=== PATIENT | male | born 1960 | race Caucasian/White ===

== ENCOUNTER → 2020-01-21 08:40 | Outpatient (BNVA) | payer MEDICARE, SELFPAY | PROVIDERS: Family Provider Nurse Practitioner; PCP Nurse Practitioner; Visit Provider Nurse Practitioner | DX: E11.65 Type 2 diabetes mellitus with hyperglycemia (principal); I10 Essential (primary) hypertension; B02.30 Zoster ocular disease, unspecified | CPT/HCPCS: 80053; 80061; 81003; 82044; 83036 ==

== ENCOUNTER → 2020-05-01 13:54 | Outpatient (BNVA) | payer MEDICARE, SELFPAY | PROVIDERS: Family Provider Nurse Practitioner; PCP Nurse Practitioner; Visit Provider Nurse Practitioner Family | DX: M25.532 Pain in left wrist (principal); X58.XXXA Exposure to other specified factors, initial encounter; S69.92XA Unspecified injury of left wrist, hand and finger(s), initial encounter | CPT/HCPCS: 73110 ==

== ENCOUNTER → 2020-07-08 10:03 | Outpatient (BNVA) | payer MEDICARE, SELFPAY | PROVIDERS: Family Provider Nurse Practitioner; PCP Nurse Practitioner; Visit Provider Nurse Practitioner | DX: I10 Essential (primary) hypertension (principal); E11.65 Type 2 diabetes mellitus with hyperglycemia | CPT/HCPCS: 72040; 72072; 80053; 80061; 83036; 85025 ==

== ENCOUNTER 2020-09-29 09:14 | Outpatient (CLI) | payer MEDICARE, SELFPAY ==
--- NOTE | 2020-09-29 09:36 | XR_ITS ---
WS: [id number] LEFT SHOULDER: 3 VIEW(S) TECHNIQUE: Internal and external rotation with Y view. HISTORY: PAIN IN LEFT SHOULDER COMPARISON: None available. No fracture or dislocation or soft tissue abnormality. Mild narrowing of the AC joint. Visualized LEFT upper lung is normal. XR/XR shoulder LT min 2V* [id number] IMPRESSION: Mild AC joint arthritis.
--- NOTE | 2020-09-29 09:36 | MR_ITS ---
WS: [id number] MRI CERVICAL SPINE HISTORY: CERVICALGIA COMPARISON: None available. Normal posterior cervical alignment. No fractures or marrow edema. Signal within the cervical cord is normal. Visualized posterior fossa is unremarkable. Craniocervical junction, C1 and C2 relationship, odontoid process and soft tissues are normal. C2-C3: Normal. C3-C4: Very small osteophytes without significant stenosis. C4-C5: Normal. C5-C6: Normal. C6-C7: Very shallow disc protrusion centrally. No significant stenosis. C7-T1: Normal. Paraspinal soft tissue are normal. MR/MR cervical spin wo con* [id number] IMPRESSION: 1. No significant central or foraminal stenosis or disc protrusions. 2. Normal signal within the cord.
--- NOTE | 2020-09-29 09:36 | XR_ITS ---
WS: [id number] LATERAL CERVICAL SPINE: 3 view. Lateral radiographs are performed in upright neutral, flexion and extension to the patient's toleranc e. HISTORY: CERVICALGIA COMPARISON: 07/08/2020 Posterior alignment is normal. With flexion there is 2 mm anterolisthesis of C3. Normal alignment dur ing extension and neutral. No fractures. No prevertebral soft tissue swelling. XR/XR cervical spine fl/ex [id number] IMPRESSION: 2 mm anterolisthesis of C3 during flexion only.
== END 2020-09-29 09:15 | disposition home or self-care (01) ==
PROVIDERS: PCP Nurse Practitioner; Visit Provider Anesthesiology Pain Medicine
DX: M54.2 Cervicalgia (principal); M25.512 Pain in left shoulder; M13.812 Other specified arthritis, left shoulder
CPT/HCPCS: 72040; 72141; 73030

== ENCOUNTER → 2020-12-10 08:19 | Outpatient (BNVA) | payer MEDICARE, SELFPAY | PROVIDERS: PCP Nurse Practitioner; Visit Provider Nurse Practitioner | DX: E11.65 Type 2 diabetes mellitus with hyperglycemia (principal); I10 Essential (primary) hypertension | CPT/HCPCS: 80053; 80061; 83036; 85025 ==

== ENCOUNTER → 2020-12-16 12:02 | Outpatient (BNVA) | payer MEDICARE, SELFPAY | PROVIDERS: PCP Nurse Practitioner; Visit Provider Nurse Practitioner | DX: E11.65 Type 2 diabetes mellitus with hyperglycemia (principal); B02.30 Zoster ocular disease, unspecified; I10 Essential (primary) hypertension; M47.22 Other spondylosis with radiculopathy, cervical region | CPT/HCPCS: 81000 ==

== ENCOUNTER → 2021-03-10 11:34 | Outpatient (BNVA) | payer MEDICARE, SELFPAY | PROVIDERS: PCP Nurse Practitioner; Visit Provider Nurse Practitioner | DX: E55.9 Vitamin D deficiency, unspecified (principal); E11.65 Type 2 diabetes mellitus with hyperglycemia; I10 Essential (primary) hypertension; Z78.9 Other specified health status; Z79.899 Other long term (current) drug therapy | CPT/HCPCS: 80053; 81000; 82306; 83036 ==

== ENCOUNTER → 2021-10-05 10:28 | Outpatient (BNVA) | payer MEDICARE, SELFPAY | PROVIDERS: PCP Nurse Practitioner; Visit Provider Nurse Practitioner | DX: E11.65 Type 2 diabetes mellitus with hyperglycemia (principal); I10 Essential (primary) hypertension | CPT/HCPCS: 80053; 80061; 83036 ==

== ENCOUNTER → 2021-12-27 08:49 | Outpatient (BNVA) | payer MEDICARE, SELFPAY | PROVIDERS: PCP Nurse Practitioner; Visit Provider Nurse Practitioner | DX: E11.65 Type 2 diabetes mellitus with hyperglycemia (principal); E55.9 Vitamin D deficiency, unspecified; B02.30 Zoster ocular disease, unspecified; I10 Essential (primary) hypertension; Z12.5 Encounter for screening for malignant neoplasm of prostate | CPT/HCPCS: 80053; 80061; 81000; 82043; 82306; 83036; 84443; G0103 ==

== ENCOUNTER → 2022-04-12 09:05 | Outpatient (BNVA) | payer MEDICARE, SELFPAY | PROVIDERS: PCP Nurse Practitioner; Visit Provider Nurse Practitioner | DX: E11.65 Type 2 diabetes mellitus with hyperglycemia (principal); E78.2 Mixed hyperlipidemia; M54.42 Lumbago with sciatica, left side; Z12.11 Encounter for screening for malignant neoplasm of colon | CPT/HCPCS: 80053; 80061; 81000; 82043; 83036 ==

== ENCOUNTER → 2022-04-15 11:11 | Outpatient (BNVA) | payer MEDICARE, SELFPAY | PROVIDERS: PCP Nurse Practitioner; Visit Provider Nurse Practitioner Family | DX: Z20.822 Contact with and (suspected) exposure to COVID-19 (principal) | CPT/HCPCS: 87635 ==

== ENCOUNTER → 2022-06-01 08:47 | Outpatient (BNVA) | payer MEDICARE, SELFPAY | PROVIDERS: PCP Nurse Practitioner; Visit Provider Anesthesiology Pain Medicine | DX: G89.29 Other chronic pain (principal); M47.816 Spondylosis without myelopathy or radiculopathy, lumbar region; M51.16 Intervertebral disc disorders with radiculopathy, lumbar region; M54.2 Cervicalgia; M48.062 Spinal stenosis, lumbar region with neurogenic claudication; M79.604 Pain in right leg; M79.605 Pain in left leg | CPT/HCPCS: 99204 ==

== ENCOUNTER → 2022-06-16 14:57 | Outpatient (BNVA) | payer MEDICARE, SELFPAY | PROVIDERS: PCP Nurse Practitioner; Visit Provider Anesthesiology Pain Medicine | DX: G89.29 Other chronic pain (principal); M54.16 Radiculopathy, lumbar region; M54.2 Cervicalgia; E11.65 Type 2 diabetes mellitus with hyperglycemia | CPT/HCPCS: 36416; 62323; 82962; J1040; J3490 ==

== ENCOUNTER → 2022-07-18 13:03 | Outpatient (BNVA) | payer MEDICARE, SELFPAY | PROVIDERS: PCP Nurse Practitioner; Visit Provider Anesthesiology Pain Medicine | DX: G89.29 Other chronic pain (principal); M47.816 Spondylosis without myelopathy or radiculopathy, lumbar region; M54.16 Radiculopathy, lumbar region; M54.2 Cervicalgia | CPT/HCPCS: 62323; J1040; J3490 ==

== ENCOUNTER → 2022-08-01 08:32 | Outpatient (BNVA) | payer MEDICARE, SELFPAY | PROVIDERS: PCP Nurse Practitioner; Visit Provider Nurse Practitioner | DX: E11.65 Type 2 diabetes mellitus with hyperglycemia (principal) | CPT/HCPCS: 80053; 80061; 81000; 82043; 83036 ==

== ENCOUNTER 2022-08-03 07:51 | Outpatient (CLI) | payer MEDICARE, SELFPAY ==
--- NOTE | 2022-08-03 08:00 | MR_ITS ---
WS: [id number] MRI LUMBAR SPINE NONCONTRAST HISTORY: M48.062 - Spinal stenosis, lumbar region with pain down LEFT leg and hip. COMPARISON: 10/13/2016 TECHNIQUE: Sagittal and axial multisequence imaging is submitted. Rapid scanning done as patient was unable to remain still for this examination a claustrophobic. Normal lumbar alignment with no compression fractures or marrow edema. Mild disc desiccation at L4-5 and L5-S1. Conus terminates normally at L1-2 disc level. L1-L2: Normal. L2-L3: Mild ligamentum flavum and facet arthritis. No significant stenosis. L3-L4: Very mild asymmetric disc bulging with a RIGHT foraminal disc protrusion. Mild encroachment up on the ventral thecal sac with facet and ligamentum flavum hypertrophy. Slightly greater encroachment and narrowing of the RIGHT subarticular recess. Mild contact upon the traversing RIGHT L4 nerve root . Mild central stenosis. L4-L5: Diffuse disc bulging and osteophytic ridging with ligamentum flavum and facet arthritis. Centr al disc protrusion with annular fissure. At least moderate central and bilateral subarticular recess stenosis and mild foraminal stenosis. Mild progression of disease since the prior examination. The RI GHT subarticular recess disc protrusion has decreased slightly in size but there is still mass effect upon the traversing L5 nerve roots. L5-S1: Mild osteophytic ridging. Mild annular disc bulging. Central disc protrusion with fissure has decreased slightly in size. MR/MR lumbar spine wo con* [id number] IMPRESSION: 1. Moderate central and bilateral subarticular recess stenosis at L4-5 due to combination of disc and facet arthritis. Mild progression of stenosis since the prior study. Encroachment upon the traversing L5 nerve roots bilaterally. 2. Small central disc protrusion at L5-S1 has decreased in size since 2017. 3. Mild central stenosis at L3-4 with encroachment greatest upon the RIGHT sub articular recess and the traversing RIGHT L4 nerve root.
== END 2022-08-03 07:52 | disposition home or self-care (01) ==
PROVIDERS: PCP Nurse Practitioner; Visit Provider Anesthesiology Pain Medicine
DX: M48.062 Spinal stenosis, lumbar region with neurogenic claudication (principal); G89.29 Other chronic pain; M47.816 Spondylosis without myelopathy or radiculopathy, lumbar region; M51.16 Intervertebral disc disorders with radiculopathy, lumbar region; M54.2 Cervicalgia; M79.604 Pain in right leg; M79.605 Pain in left leg
CPT/HCPCS: 72148; 99214

== ENCOUNTER → 2022-10-03 10:37 | Outpatient (BNVA) | payer MEDICARE, SELFPAY | PROVIDERS: PCP Nurse Practitioner; Visit Provider Anesthesiology Pain Medicine | DX: G89.29 Other chronic pain (principal); M47.816 Spondylosis without myelopathy or radiculopathy, lumbar region; M51.16 Intervertebral disc disorders with radiculopathy, lumbar region | CPT/HCPCS: 99213 ==

== ENCOUNTER → 2023-01-10 11:44 | Outpatient (BNVA) | payer MEDICARE, SELFPAY | PROVIDERS: PCP Nurse Practitioner; Visit Provider Nurse Practitioner | DX: E11.65 Type 2 diabetes mellitus with hyperglycemia (principal) | CPT/HCPCS: 80053; 80061; 81000; 82043; 83036 ==

== ENCOUNTER 2023-05-06 13:47 | Emergency (ER) | payer MEDICARE, SELFPAY ==
[2023-05-06 13:56] VITALS: BP 149/81; PULSE 72; RESP 15; O2SAT 98
--- NOTE | 2023-05-06 16:10 | XRR_ITS ---
PROCEDURE INFORMATION: Exam: XR Right Knee Exam date and time: 05/06/2023 4:26 PM Age: 62 years old Clinical indication: Pain; Knee; Right; Additional info: Pain, lateral/inferior knee pain, unable to fully extend TECHNIQUE: Imaging protocol: Radiologic exam of the right knee. Views: 3 views. COMPARISON: No relevant prior studies available. FINDINGS: Bones/joints: No knee joint effusion. There is an incidental large fabella adjacent to the lateral femur. There is a small avulsion fracture of the lateral femur just proximal to the fabella on the oblique view. There is also a small avulsion fracture of the lateral tibia/Segond fracture. Soft tissues: There is mild soft tissue edema. XR/XR knee RT 3V* [id number] IMPRESSION: Two lateral avulsion fractures are identified including a Segond fracture. These are associated with internal derangement. MRI may be helpful for further evaluation.
--- NOTE | 2023-05-06 16:21 | ED_ITS ---
HPI - Extremity Problem General: Chief complaint: Extremity Injury, Lower Stated complaint: RT leg INJ Time Seen by Provider: 05/06/23 15:57 Source: patient Mode of arrival: wheelchair Limitations: no limitations History of Present Illness: Patient presents to the emergency department today for evaluation treatment of right lateral/inferior knee pain. Patient reports issues with his knees in the past where they will often lock but eventually released. He indicates pain for quite a while after these episodes but, states today is different. He states he was on his hands and knees cleaning out the bottom drawers of his refrigerator and when he stood up, had pain to the lateral, inferior right knee without ability to fully extend. He states he was only on his knees for a short amount of time. He denies known previous injuries to his knees. He does present with a knee brace which his sister provided to him. Review of Systems General: Reports: 10 or more systems reviewed and unremarkable except in HPI and below PFSH ED PFSH: Medical History Cervical radiculopathy due to degenerative joint disease of spine Diabetes mellitus with hyperglycemia, without long-term current use of insulin Enrolled in chronic care management Herpes ocular Hyperlipidemia, mixed Hypertension Left-sided low back pain with left-sided sciatica Rosacea Surgical History No history of previous surgery Family History Brother Diabetes Hypertension Mother Cancer Social History Smoking and tobacco status: never smoked Second hand smoke exposure: No Smoking risk assessment/counseling performed?: No Alcohol intake: never Desire information about alcohol rehabilitation?: No Counseling given: No Substance/Drug Use: never Desire information about substance/drug rehabilitation?: No Counseling given: No Adopted: No Caregiver/support person: No Lives independently: Yes Household members: none Housing: House Marital status: Single Number of children: 0 service: No Current occupational status: disabled Pets and animals: No Do you think of yourself as: Straight/Heterosexual Current gender identity: Male Physical Exam Const: COMMON NORMALS: no acute distress, patient oriented x3 and alert HENMT: COMMON NORMALS: normocephalic, atraumatic and hearing grossly normal bilaterally HEAD & SCALP: normocephalic and atraumatic Eye: COMMON NORMALS: Equal, round and reactive pupils present, EOMs intact bilaterally and conjunctivae normal CONJUNCTIVA: Yes conjunctivae normal PUPIL: Yes Equal, round and reactive pupils present Neck/C-Spine: COMMON NORMALS: full ROM and no JVD Lymph: LYMPHATIC: no lymphadenopathy noted Resp: COMMON NORMALS: normal respiratory effort, No retractions and No use of accessory muscles Cardio: COMMON NORMALS: no JVD and regular rate RATE: regular rate Extremity: NARRATIVE EXTREMITY EXAM: Patient with ability to flex the right knee and nearly fully extend the right knee though he indicates worsening pain and pulling to the right lateral, inferior knee. This area is tender on palpation. He has no prepatellar tenderness. No popliteal tenderness. Calf is soft and nontender. No lower extremity swelling. No obvious bruising or redness to the right knee. Neuro: COMMON NORMALS: patient oriented x3 SENSORIUM/ORIENTATION: Yes alert Psych: COMMON NORMALS: mental status grossly normal, Normal thought process present, cooperative and normal affect THOUGHT PROCESS: Normal thought process present Skin: COMMON NORMALS: no rashes or lesions noted and turgor normal GENERAL SKIN EXAM: no rashes or lesions noted and turgor normal Course Vital Signs: Vital signs: Vital Signs Pulse Rate 72 05/06/23 13:56 Respiratory Rate 15 05/06/23 13:56 Blood Pressure 149/81 05/06/23 13:56 Pulse Oximetry 98 05/06/23 13:56 Oxygen Delivery Me thod Room Air 05/06/23 13:56 MDM - Extremity (Nontraumatic) Medical Decision Making Patient's x-ray shows to lateral avulsion fractures including a Segond fracture. Radiologist indicated that these are often associated with internal derangement and indicated issues with ACL and meniscus specifically. I had already spoken to the patient regarding suspicion for meniscal injury given his previous history of his knee catching . I have initiated a referral for follow-up with orthopedics on his behalf. He was also given a knee brace and, we had discussed the use of crutches but, patient's sisters indicate they have a walker as well. Patient is to keep his leg up and elevated. We discussed the application of ice and, patient was given a short course of [place] in addition to NSAID. Patient verbalized understanding and agreement to treatment plan. Differential Diagnosis Unlikely cellulitis (Knee strain, tendinitis, bursitis, internal derangement, meniscal tear) or lower extremity edema Lab Data Radiology Impressions Knee X-Ray 05/06/23 16:10 IMPRESSION: Two lateral avulsion fractures are identified including a Segond fracture. These are associated with internal derangement. MRI may be helpful for further evaluation. Discharge Plan Discharge Patient Disposition: Home Clinical Impression: Avulsion fracture Condition: Stable Prescriptions: New naproxen 500 mg tablet 500 mg PO BID PRN (Reason: pain) Qty: 20 0RF No Action ibuprofen 200 mg capsule 200 mg PO Q6H PRN cholecalciferol (vitamin D3) 125 mcg (5,000 unit) capsule 125 mcg PO DAILY zinc 50 mg tablet 50 mg PO DAILY ascorbate calcium (vitamin C) 500 mg tablet 500 mg PO DAILY multivitamin Tablet 1 tab PO QAM Mucinex 1,200 mg tablet extended release 12hr 1,200 mg PO Q12H Qty: 60 0RF tizanidine 4 mg tablet 4 mg PO BID PRN (Reason: muscle spasticity) Qty: 60 0RF methylprednisolone acetate [Depo-Medrol] 80 mg/mL suspension 80 mg Infiltration ONCE Qty: 1 0RF albuterol sulfate [ProAir HFA] 90 mcg/actuation HFA aerosol inhaler 2 puff inhalation QID PRN (Reason: shortness of breath or wheezing) Qty: 6.7 0RF Trulicity 0.75 mg/0.5 mL pen injector 0.75 mg SUBCUT .weekly Qty: 2 2RF methylprednisolone acetate [Depo-Medrol] 80 mg/mL suspension 80 mg Infiltration ONCE Qty: 1 0RF sildenafil [Viagra] 100 mg tablet 100 mg PO DAILY PRN (Reason: sexual activity) Qty: 10 2RF Rx Instructions: administer 30 minutes to 4 hours before activity acyclovir 400 mg tablet 400 mg PO TID Qty: 270 1RF bupropion HCl [Wellbutrin XL] 150 mg tablet extended release 24 hr 150 mg PO QAM Qty: 30 2RF cetirizine [Zyrtec] 10 mg tablet 10 mg PO DAILY PRN (Reason: allergy symptoms) Qty: 30 1RF fenofibrate nanocrystallized [Tricor] 145 mg tablet 145 mg PO DAILY Qty: 90 1RF losartan 100 mg tablet 100 mg PO DAILY Qty: 90 1RF methylprednisolone acetate [Depo-Medrol] 80 mg/mL suspension 80 mg Infiltration ONCE Qty: 1 0RF metformin 500 mg tablet extended release 24 hr 1,000 mg PO DAILY Qty: 180 0RF Farxiga 10 mg tablet 10 mg PO QAM Qty: 90 0RF Discharge Orders: Discharge ED (Routine); Ordered 05/06/23 Ordered By: Danielle Reddy Referrals: Emeli Lam, [employer] CLEANING MACHINE OPERATOR-C [Primary Care Provider] - Discharge Diet: Usual diet Discharge Activity: Limit activity as instructed Patient Instructions: Fractures - Knee, Meniscus Tear (ED) Activity Restrictions/Additional Instructions: X-ray today shows an avulsion fracture in your area of tenderness on the lateral side of your knee. Based off of these findings, there is concern for internal derangement of the knee which indicates connective tissue injury. Most likely ACL and meniscal injury as we previously discussed with the symptoms you had been experiencing in the past with catching of your knee. I have requested a follow-up appointment with orthopedics for follow-up. We have provided you medication to take to help with your pain. You can apply ice for 15 to 20 minutes as well. Try and keep your knee in the immobilizer and use crutches until seen by orthopedics. Coding Level of Care Code ED Oil Dispatcher for Aidan Diez
[2023-05-06] MEDS: HYDROcodone-acetaminophen 5-325 mg Tablet 1 TAB PO (17:39)
[2023-05-06] MEDS: ketorolac 60 mg/2 mL INJ IM (17:39)
[2023-05-06 18:30] VITALS: BP 149/81; PULSE 72; RESP 15; O2SAT 98
--- NOTE | 2023-05-08 07:59 | DCPLANNER ---
Addendum entered by Caroline Vinson 05/19/23 10:27: Patient did attend this appointment with ortho Addendum entered by Caroline Vinson 05/09/23 11:37: Patient has a follow up appointment scheduled for , May 11, 2023 at 9:00 with Sal Angelo at ortho. Original Note: industrial maintenance manager had message to schedule a follow up appointment for patient with ortho. industrial maintenance manager sent patients information to the front office staff at ortho. Patients information will be printed and reviewed. Clinic will call patient with appointment information.
== END 2023-05-06 18:30 | disposition home or self-care (01) ==
PROVIDERS: Emergency Provider Physician Assistant; PCP Nurse Practitioner
DX: S72.91XA Unspecified fracture of right femur, initial encounter for closed fracture (principal); S82.144A Nondisplaced bicondylar fracture of right tibia, initial encounter for closed fracture; E11.9 Type 2 diabetes mellitus without complications; E78.2 Mixed hyperlipidemia; I10 Essential (primary) hypertension; X50.9XXA Other and unspecified overexertion or strenuous movements or postures, initial encounter; Z79.84 Long term (current) use of oral hypoglycemic drugs; Z79.85 Long-term (current) use of injectable non-insulin antidiabetic drugs
CPT/HCPCS: 29530; 73562; 96372; 99284; J1885

== ENCOUNTER 2023-05-10 15:50 | Outpatient (CLI) | payer MEDICARE, SELFPAY ==
--- NOTE | 2023-05-10 16:00 | CT_ITS ---
WS: [id number] CT NECK TECHNIQUE: Contrast-enhanced CT of the neck with coronal and sagittal reformatted images. CLINICAL INFORMATION: R59.0 - Localized enlarged lymph nodes COMPARISON: None. DLP: 204.[address] scans at [facility] use at least one of these dose optimization techniques: automated e xposure control; mA and/or kV adjustment per patient size (includes targeted exams where dose is matc hed to clinical indication); or iterative reconstruction. FINDINGS: Mastoid air cells well aerated. Partially visualized paranasal sinuses are well aerated. Normal poste rior nasopharynx and parapharyngeal fat. Incidental tonsillar calcifications. Parotid glands are norm al. Submandibular glands are normal. Dental artifact degrades some images at the tongue base. Normal posterior nasopharynx. Normal parapharyngeal fat. No evidence of supraglottic or glottic mass. Normal subglottic airway. Lung apices are well aerated. No cervical lymphadenopathy. IMPRESSION: 1. No suspicious neck findings. 2. Normal salivary glands. 3. No evidence of supraglottic or glottic mass. 4. No cervical lymphadenopathy.
[2023-05-10 16:17] LABS: Blood Urea Nitrogen 27 mg/dL (8-23); Glomerular Filtration Rate 67.8 mL/min (90-130)
[2023-05-10] MEDS: iohexol 350 mg/mL 500 mL Btl (per mL) IV (16:22)
== END 2023-05-10 15:51 | disposition home or self-care (01) ==
PROVIDERS: PCP Nurse Practitioner; Visit Provider Nurse Practitioner Family
DX: R59.0 Localized enlarged lymph nodes (principal)
CPT/HCPCS: 70491; 82565; 84520; Q9967

== ENCOUNTER → 2023-05-11 09:11 | Outpatient (BNVA) | payer MEDICARE, SELFPAY | PROVIDERS: PCP Nurse Practitioner; Referring Provider Physician Assistant; Visit Provider Physician Assistant | DX: M23.91 Unspecified internal derangement of right knee (principal) | CPT/HCPCS: 73562; 99203 ==

== ENCOUNTER → 2023-05-30 09:01 | Outpatient (BNVA) | payer MEDICARE, SELFPAY | PROVIDERS: PCP Nurse Practitioner; Visit Provider Otolaryngology | DX: R09.89 Other specified symptoms and signs involving the circulatory and respiratory systems (principal); J34.2 Deviated nasal septum | CPT/HCPCS: 31575; 99203; 99204 ==

== ENCOUNTER 2023-06-08 08:26 | Outpatient (CLI) | payer MEDICARE, SELFPAY ==
--- NOTE | 2023-06-08 08:45 | MR_ITS ---
WS: [id number] MRI RIGHT KNEE HISTORY: fracture COMPARISON: 05/06/2023, 05/11/2023 Anterior cruciate ligament: Intact. Posterior cruciate ligament: Intact. Medial collateral ligament: Intact. Posterior lateral corner structures: Intact. Medial menisci: Horizontal tear in the posterior horn extends to the inferior tickler surface. Normal anterior horn. Lateral meniscus: Abnormal shape and signal throughout the posterior horn. Complex tear involving the body and the root of the posterior horn. There is additional abnormal signal involving a large porti on of the anterior horn. Small caliber anterior horn meniscus. Increased signal extends to the inferi or reticular surface. Extensor mechanism: Distal quadriceps tendon and patellar tendons are intact. Fluid and soft tissue: Large suprapatellar joint effusion. There are a few small loose bodies within the joint effusion. There are also several plica extending through the fluid. No Enrique's cyst. Osseous and articular structures: Patellofemoral compartment: Moderate patellofemoral joint space narrowing. Extensive chondromalacia. Mild lateral subluxation of the patella. Medial compartment: Mild narrowing of the medial compartment. Moderate thinning and fissuring of the cartilage along the weightbearing surfaces. No marrow edema or fracture. Lateral compartment: Mild narrowing the lateral compartment. Mild thinning and fissuring of the carti jt. No significant degenerative changes along the posterior joint space. No marrow edema. No acute fractures. Mild infrapatellar fat pad edema. IMPRESSION: 1. Large suprapatellar joint effusion with small loose bodies in plica. 2. Complex tears involving the lateral menisci. There are tears in both anterior and posterior horns. Most significant tear involves the posterior horn. 3. Horizontal tear posterior horn medial meniscus. 4. Moderate patellofemoral joint space narrowing. 5. Mild medial and lateral compartment joint space narrowing with chondromalacia. 6. No marrow edema or fractures are identified. MRI is not as sensitive as CT for evaluation of fract ures. For subtle fractures follow-up CT RIGHT knee can be obtained.
== END 2023-06-08 08:27 | disposition home or self-care (01) ==
LOC: RAD 08:27
PROVIDERS: PCP Nurse Practitioner; Visit Provider Physician Assistant
DX: S83.281A Other tear of lateral meniscus, current injury, right knee, initial encounter (principal); M23.41 Loose body in knee, right knee; S83.241A Other tear of medial meniscus, current injury, right knee, initial encounter; X58.XXXA Exposure to other specified factors, initial encounter; M94.261 Chondromalacia, right knee
CPT/HCPCS: 73721

== ENCOUNTER → 2023-06-22 08:22 | Outpatient (BNVA) | payer MEDICARE, SELFPAY | PROVIDERS: PCP Nurse Practitioner; Visit Provider Physician Assistant | DX: M23.91 Unspecified internal derangement of right knee (principal); M25.561 Pain in right knee; Z79.891 Long term (current) use of opiate analgesic | CPT/HCPCS: 99213 ==

== ENCOUNTER → 2023-07-11 14:04 | Outpatient (BNVA) | payer MEDICARE, SELFPAY | PROVIDERS: PCP Nurse Practitioner; Visit Provider Nurse Practitioner | DX: B02.30 Zoster ocular disease, unspecified (principal); E78.2 Mixed hyperlipidemia; E11.22 Type 2 diabetes mellitus with diabetic chronic kidney disease; N18.2 Chronic kidney disease, stage 2 (mild); I12.9 Hypertensive chronic kidney disease with stage 1 through stage 4 chronic kidney disease, or unspecified chronic kidney disease | CPT/HCPCS: 80053; 80061; 82043; 83036 ==

== ENCOUNTER → 2023-07-18 08:50 | Outpatient (BNVA) | payer MEDICARE, SELFPAY | PROVIDERS: PCP Nurse Practitioner; Visit Provider Student in an Organized Health Care Education/Training Program | DX: S83.241A Other tear of medial meniscus, current injury, right knee, initial encounter; S83.281A Other tear of lateral meniscus, current injury, right knee, initial encounter; M23.41 Loose body in knee, right knee; X58.XXXA Exposure to other specified factors, initial encounter | CPT/HCPCS: 99214 ==

== ENCOUNTER 2023-08-23 08:55 | Day surgery (SDC) | payer MEDICARE, SELFPAY ==
[2023-08-23] VITALS (11 sets, daily range): BP systolic 120–139; BP diastolic 72–85; PULSE 76–85; RESP 10–23; TEMP 35.9–36.3; O2SAT 92–98; BMI 28.7
[2023-08-23] MEDS: sodium chloride 0.9% 1,000 ML 30 ML IV (09:30)
[2023-08-23] MEDS: acetaminophen 1,000 MG/100 ML PIGGYBACK 400 MG IV (09:35)
[2023-08-23] MEDS: ketorolac 30 mg/mL INJ IVP (09:38)
--- NOTE | 2023-08-23 10:30 | ANES.PREANE2 ---
Pre-Anesthetic Assessment Height/Weight: Height 1.8 m Weight 93.44 kg Temp Pulse Resp BP Pulse Ox O2 Del Method 96.7 F L 79 16 139/85 96 Room Air 08/23/23 09:15 08/23/23 09:15 08/23/23 09:15 08/23/23 09:15 08/23/23 09:15 08/23/23 09:15 Operation Date: 08/23/23 10:50 Proposed Procedures p Knee Arthroscopy w/ Partial Medial and Lateral Menisectomy(Right) - Pedro Granger DO s Removal Loose Bodies(Right) - Pedro Granger DO Familial anesthetic complications: none Was Beta Kodi taken within 24 hours: N/A Was Clonidine taken within 24 hours: N/A Last intake: Intake Last Liquid Date 08/22/23 Last Liquid Time 20:30 Last Solid Date 08/22/23 Last Solid Time 19:00 Social No alcohol and No tobacco Exam alert, oriented x 3, clear to auscultation bilaterally and regular rate & rhythm Airway Submandibular: within normal limits Cervical ROM: within normal limits Mallampati: Class II Dentition: full CV/HEM Hypertension Metabolic Diabetes Mellitus [facility] [place] Pain and Osteoarthritis/DJD Anesthetic Plan ASA status: 2 Anesthesia: General and Regional (specify below) (adductor blk) Medications/Allergies Home Medications Medication Instructions Recorded Confirmed Last Taken Type ascorbate calcium (vitamin C) 500 500 mg PO DAILY 10/06/21 08/22/23 08/22/23 History mg tablet cholecalciferol (vitamin D3) 125 125 mcg PO DAILY 10/06/21 08/22/23 08/22/23 History mcg (5,000 unit) capsule multivitamin 1 tab PO QAM 10/06/21 08/23/23 08/22/23 History zinc 50 mg tablet 50 mg PO DAILY 10/06/21 08/23/23 08/22/23 History acyclovir 400 mg tablet 400 mg PO TID #270 tabs 07/11/23 08/22/23 08/22/23 Rx fenofibrate nanocrystallized 145 145 mg PO DAILY #90 tabs 07/11/23 08/22/23 08/22/23 Rx mg tablet (Tricor) losartan 100 mg tablet 100 mg PO DAILY #90 tabs 07/11/23 08/22/23 08/22/23 Rx dulaglutide 0.75 mg/0.5 mL 0.75 mg (0.5 mL) SUBCUT .weekly #2 07/12/23 08/23/23 08/21/23 Rx subcutaneous pen injector mL (Trulicity) canagliflozin 50 mg-metformin ER 1 tab PO DAILY 08/22/23 08/23/23 08/22/23 History 1,000 mg tablet,extend release 24 hr (Invokamet XR) Allergies Allergy/AdvReac Type Severity Reaction Status Date / Time lisinopril Allergy ADR-Cough Verified 08/23/23 09:22 Current Medications Generic Name Dose Route Start Last Admin Trade Name Freq PRN Reason Stop Dose Admin Sodium Chloride 1,000 mls @ 30 mls/hr 08/23/23 09:15 08/23/23 09:30 Sodium Chloride 0.9% IV 08/24/23 09:14 30 mls/hr .Q24H LARISSA Administration PFSH Anesthesia Medical History Cervical radiculopathy due to degenerative joint disease of spine Diabetes mellitus with hyperglycemia, without long-term current use of insulin Enrolled in chronic care management Herpes ocular Hyperlipidemia, mixed Hypertension Internal derangement of right knee Left-sided low back pain with left-sided sciatica Rosacea Surgical History No history of previous surgery Family History Brother Diabetes Hypertension Mother Cancer Other Internal derangement of right knee Social History Smoking and tobacco/nicotine status: never used tobacco/nicotine Second hand smoke exposure: No Alcohol intake: never Substance/Drug Use: never Adopted: No Caregiver/support person: No Lives independently: Yes Household members: none Housing: House Marital status: Single Number of children: 0 service: No Current occupational status: disabled Pets and animals: No Do you think of yourself as: Straight/Heterosexual Current gender identity: Male Data Anesthesia Cardiac Studies: No Data to Display
--- NOTE | 2023-08-23 10:31 | W.PM.OPSFHP ---
Same Day Surgery H&P Indication for Procedure/HPI DATE OF PROCEDURE: August 23, 2023 CHIEF COMPLAINT/INDICATIONFOR SURGICAL PROCEDURE: Right knee medial and lateral meniscus tear, loose bodies PREOP DIAGNOSIS: Right knee medial lateral meniscus tear, loose bodies PLANNED PROCEDURE: Operation Date: 08/23/23 10:50 Proposed Procedures p Knee Arthroscopy w/ Partial Medial and Lateral Menisectomy(Right) - Pedro Granger DO s Removal Loose Bodies(Right) - Pedro Granger DO Medications/Allergies* Home Medications Medication Instructions Recorded Confirmed Type ascorbate calcium (vitamin C) 500 500 mg PO DAILY 10/06/21 08/22/23 History mg tablet cholecalciferol (vitamin D3) 125 125 mcg PO DAILY 10/06/21 08/22/23 History mcg (5,000 unit) capsule multivitamin 1 tab PO QAM 10/06/21 08/23/23 History zinc 50 mg tablet 50 mg PO DAILY 10/06/21 08/23/23 History canagliflozin 50 mg-metformin ER 1 tab PO DAILY 08/22/23 08/23/23 History 1,000 mg tablet,extend release 24 hr (Invokamet XR) Allergies/Adverse Reactions Allergy/AdvReac Type Severity Reaction Status Date / Time lisinopril Allergy ADR-Cough Verified 08/23/23 09:22 Current Medications: Generic Name Dose Route Start Last Admin Trade Name Freq PRN Reason Stop Dose Admin Sodium Chloride 1,000 mls @ 30 mls/hr 08/23/23 09:15 08/23/23 09:30 Sodium Chloride 0.9% IV 08/24/23 09:14 30 mls/hr .Q24H LARISSA Administration Pertinent History/Comorbid Conditions* Medical History (Updated 07/18/23 @ 10:23 by Pedro Granger DO) Internal derangement of right knee Diabetes mellitus with hyperglycemia, without long-term current use of insulin Hyperlipidemia, mixed Cervical radiculopathy due to degenerative joint disease of spine Left-sided low back pain with left-sided sciatica Rosacea Herpes ocular Hypertension Enrolled in chronic care management Surgical History (Updated 02/01/20 @ 20:04 by PAT Tapia) No history of previous surgery Family History (Updated 06/22/23 @ 08:40 by Sal Angelo PA-C) Internal derangement of right knee Diabetes Brother Cancer Mother Hypertension Brother Social History Smoking and tobacco/nicotine status: never used tobacco/nicotine Second hand smoke exposure: No Alcohol intake: never Substance/Drug Use: never Adopted: No Caregiver/support person: No Lives independently: Yes Household members: none Housing: House Marital status: Single Number of children: 0 service: No Current occupational status: disabled Pets and animals: No Do you think of yourself as: Straight/Heterosexual Current gender identity: Male Pertinent Exam Findings alert, oriented x 3, operative site marked and procedure specific exam findings Right knee: Mild knee swelling noted, diffuse tenderness palpation of the knee decreased range of motion pain along the medial and lateral joint lines. Recommendations Surgery/Procedure today Other Plans: Plan to proceed to the OR today for right knee diagnostic and surgical arthroscopy with partial medial meniscectomy versus repair, partial lateral meniscectomy versus repair and removal of loose bodies. Patient understands and sounds procedure risk benefits complication alternatives of surgery elects proceed with surgical intervention all questions have been answered at this time. Coding Level of Care Code Acute Code for Aidan Diez
[2023-08-23 10:41] LABS: Glucose Point of Care 148 mg/dL (70-110)
[2023-08-23] MEDS: ceFAZolin 2,000 MG in sodium chloride 0.9% (plus) 50 ML 100 MG IV (11:35)
[2023-08-23] MEDS: lidocaine-epi 2% 20 mL INJ 40 ML INJECTION (11:55)
--- NOTE | 2023-08-23 12:03 | ANES.PROC ---
Anesthesia Procedures Procedure/Date: 08/23/23 Nerve Block ^: Nerve Block 1: Main Anesthesia: general anesthesia Time Out Performed: No Consent: requested by attending/covering physician, from patient, risks and benefits reviewed and patient agrees to proceed Nerve block location: adductor canal (right) Anesthesia monitors applied: pulse oximetry, EKG, BP cuff and oxygen Nerve block position: supine Anesthetic Used: ropivicaine 0.5% Amount of anesthesia used (mL): 20 Ultrasound used to: recognize landmarks Nerve Stimulator Used?: No Interscalene/Femoral BLK: 4 stimuplex 21 g needle used for position and inplane approach Injection: neg aspiration of heme Patient Tolerated Procedure: well Complications: none
--- NOTE | 2023-08-23 12:54 | W.PM.BPON ---
Date of Procedure: [August 23, 2023] Surgeon: [Dr. 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
--- NOTE | 2023-08-23 12:58 | PM.PACU ---
PACU note Narrative: Patient is a 63-year-old male just underwent a right knee surgical arthroscopy. Pt transferred to PACU in stable condition. Dressing is dry. pt is awake and alert. pt can wiggle toes and plantarflex and dorsiflex foot. pt able to perform straight leg raise, Femoral nerve intact. Distal pulses are palpable toes are warm and well-perfused. Cap refill is normal and under 2 seconds. Sensation to foot is intact. Pain is controlled. Exam: awake Disposition: discharged
[2023-08-23 13:32] LABS: Glucose Point of Care 152 mg/dL (70-110)
--- NOTE | 2023-08-23 16:59 | ANE.PACU2 ---
Inpatient post-anesthesia follow up: Airway intact: Yes Vital signs: Temperature 97.4 F Pulse Rate 77 Respiratory Rate 16 Blood Pressure 126/78 Pulse Oximetry 93 Oxygen Delivery Me thod Room Air Oxygen Flow Rate 6 Fraction of Inspir ed Oxygen Hydration adequate: Yes Nausea and vomiting: No Pain level: 2 Mental status: Baseline
--- NOTE | 2023-08-23 17:03 | P.OP_ITS ---
Operative Report Date of procedure: August 23, 2023 Surgeon: Pedro Granger DO Business Support Assistant: Naresh Granger PA-C: PA was necessary for assistance in this case with leg positioning , assistance with instrumentation, wound closure and dressing application. 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, lateral, patellofemoral chondromalacia Procedure done: Right?knee?diagnostic and surgical arthroscopy partial medial meniscectomy Right knee diagnostic and surgical arthroscopy partial lateral meniscectomy Right?knee?diagnostic and surgical arthroscopy with extensive synovectomy of the medial lateral and patellofemoral compartments Right?knee?diagnostic and surgical arthroscopy with medial, lateral, patellofemoral compartment chondroplasties Surgeon: Pedro Granger DO Estimated blood loss: 5 Tourniquet: No tourniquet was used IV fluids: See anesthesia record Complications: None Findings: See operative report narrative Condition: stable Disposition: same day Brief History: Patient is a 63-year-old male with right?knee?pain.? Patient has failed conservative treatment who has been worked up for right??knee?pain in the outpatient setting. MRI findings consistent with tear of the medial and lateral meniscus. talked in the office about treatment options patient would like to proceed with a right?knee?diagnostic and surgical arthroscopy with partial medial meniscectomy and partial lateral meniscectomy.? Patient understand the ins and outs of the procedure the risk benefits complication alternatives to treatment options.? Understanding risk of surgery they agree to proceed with surgical intervention.? Patient understand this may not provide patient with complete symptomatic relief of? pain as patient does have some underlying arthritis.? Understanding this and patient agree to proceed with surgical intervention all questions answered. Procedure: Patient seen and evaluated in the preoperative holding area.? Consent was reviewed and signed with patient.? Correct extremity was then marked.? Patient seen evaluated Anesthesia Department once cleared for surgery patient was taken back to the operative suite.? Patient was transported onto the OR table in supine position.? All bony prominences well-padded patient was appropriate secured to the bed.? Once appropriately anesthetized a nonsterile tourniquet was applied to the right thigh.? The right lower extremity was then prepped and draped in standard orthopedic fashion.? Final timeout performed.? Patient received appropriate preoperative antibiotics. Patient received local anesthetic of lidocaine with epinephrine into the joint as well as around the portal sites.? No tourniquet was inflated A standard 2 portal vertical incision diagnostic and surgical arthroscopy of the right?knee?was performed in standard fashion.? Small stab incision made in the inferolateral portal introduced trocar and arthroscope into the suprapatellar pouch.? Suprapatellar pouch was subsequently visualized and found to have significant synovitis but no loose bodies.? Patient had noticeable significant inflamed infrapatellar fat pad and thickening hypertrophic within the patellofemoral compartment.? ?The medial gutter was free of loose bodies I then introduced the arthroscope into the medial compartment.? Within the medial compartment I then established my inferior medial working portal utilizing spinal needle outside in technique.? Once established I then visualized our articular cartilage of the medial compartment with a valgus stress.? Patient was found to have grade 2-3 chondromalacia throughout the medial compartment.? Next I inspected the meniscus.? With an arthroscopic probe was utilized to visual? all aspects of the meniscus.? Meniscal root was found to be intact.? Meniscus was found to be torn at the body to posterior horn junction.? I then subsequently introduced a basket forceps as well as arthroscopic shaver to perform a partial medial meniscectomy to stable meniscal tissue and then utilized a thermal wand to anneal the edges.? Next, I then performed a synovectomy of the medial compartment.? Given patient's chondromalacia there was areas of unstable articular cartilage and I subsequently performed a chondroplasty with arthroscopic shaver and thermal wand.? This completed medial compartment work. Next a introduced the arthroscope to the intercondylar notch.? PCL and ACL were intact. patient had significant thickening of the infrapatellar fat pad spanning into the medial and lateral compartments.? I then performed an extensive synovectomy with the arthroscopic shaver of the patellofemoral medial and lateral compartments as well as the intercondylar notch. Advance the?scope?into the retrocruciate space and no loose bodies were found. Next I introduced the arthroscope into the lateral compartment the lateral compartment was found to have grade 3 chondromalacia.? Lateral meniscus was found to be torn.? Tear was found to not be repairable. The root was intact.? Given the grade 3 chondromalacia, I then utilized arthroscopic shaver to perform chondroplasty of the lateral compartment to remove all areas of unstable articular cartilage and subsequently completed this with a shaver and a thermal wand and completed blood work in the lateral compartment. This completed my work of the lateral compartment and then performed a synovectomy of the lateral compartment.? Next of the arthroscope was placed into the lateral gutter and this was free of loose bodies.? Finally I reintroduced the arthroscope into the patellofemoral compartment.? The patellofemoral was found to have grade 3 chondromalacia of the patellofemoral compartment.? This point once again perform chondroplasty of the patellofemoral compartment utilizing arthroscopic shaver and thermal wand to perform abrasion chondroplasty to stable articular tissue. At this point I utilized arthroscopic shaver as well as thermal wand to perform extensive synovectomy of the patellofe moral compartment. This completed my work of the patellofemoral space.? I then switch my portal sites to the medial working portal.? Completed the rest of my synovectomy and the rest of my examination arthroscopy was normal. All fluid was suctioned from the joint.? ?All instruments were withdrawn.? Portal sites were closed with interrupted nylon suture.? portal sites were then covered with with Xeroform 4 x 4's ABD Curlex and Gonzalo wrap.? Patient was then subsequently awakened from anesthesia and taken to PACU in stable condition. Disposition: Patient taken to PACU in stable condition recovering well.? Will receive appropriate discharge structure as well as pain medication postoperatively as well as? DVT prophylaxis.we will have patient follow-up with us in the office in 2 weeks.? We will weightbearing as tolerated to the right lower extremity.? Patient understands and agrees with current plan.? All questions answered.
== END 2023-08-23 14:00 | disposition home or self-care (01) ==
PROVIDERS: PCP Nurse Practitioner; Visit Provider Student in an Organized Health Care Education/Training Program
PROC: (CPT 29870; principal; 2023-08-23 10:40)
PROC: (CPT 29876; 2023-08-23 10:40)
DX: S83.241A Other tear of medial meniscus, current injury, right knee, initial encounter (principal); S83.281A Other tear of lateral meniscus, current injury, right knee, initial encounter; X58.XXXA Exposure to other specified factors, initial encounter; M65.9 Synovitis and tenosynovitis, unspecified; M22.41 Chondromalacia patellae, right knee; I10 Essential (primary) hypertension; E11.65 Type 2 diabetes mellitus with hyperglycemia; E78.2 Mixed hyperlipidemia
CPT/HCPCS: 29876; 29881; 36416; 82962; J0131; J1100; J1885; J2405; J2704; J2795; J3010; J7030

== ENCOUNTER → 2023-09-14 10:01 | Outpatient (BNVA) | payer MEDICARE, SELFPAY | PROVIDERS: PCP Nurse Practitioner; Visit Provider Student in an Organized Health Care Education/Training Program | DX: Z98.890 Other specified postprocedural states (principal) | CPT/HCPCS: 99024 ==

== ENCOUNTER 2023-09-22 06:00 | Outpatient (RCR) | payer MEDICARE, SELFPAY | END 2023-10-18 23:59 | disposition home or self-care (01) | LOC: TPT 06:00 | PROVIDERS: Visit Provider Student in an Organized Health Care Education/Training Program | DX: S83.241D Other tear of medial meniscus, current injury, right knee, subsequent encounter (principal); X58.XXXD Exposure to other specified factors, subsequent encounter | CPT/HCPCS: 97110; 97162 ==

== ENCOUNTER 2023-10-19 06:00 | Outpatient (RCR) | payer MEDICARE, SELFPAY | END 2023-11-16 23:59 | disposition home or self-care (01) | LOC: TPT 06:00 | PROVIDERS: PCP Nurse Practitioner; Visit Provider Student in an Organized Health Care Education/Training Program | DX: S83.241D Other tear of medial meniscus, current injury, right knee, subsequent encounter (principal); X58.XXXD Exposure to other specified factors, subsequent encounter | CPT/HCPCS: 97110 ==

== ENCOUNTER → 2023-10-24 10:04 | Outpatient (BNVA) | payer MEDICARE, SELFPAY | PROVIDERS: PCP Nurse Practitioner; Visit Provider Physician Assistant | DX: Z98.890 Other specified postprocedural states (principal) | CPT/HCPCS: 99024 ==

== ENCOUNTER → 2023-11-16 14:53 | Outpatient (BNVA) | payer MEDICARE, SELFPAY | PROVIDERS: PCP Nurse Practitioner; Visit Provider Nurse Practitioner | DX: E11.9 Type 2 diabetes mellitus without complications (principal) | CPT/HCPCS: 80053; 80061; 81000; 82607; 83036 ==

== ENCOUNTER 2023-11-17 06:00 | Outpatient (RCR) | payer MEDICARE, SELFPAY | END 2023-12-17 23:59 | disposition home or self-care (01) | LOC: TPT 06:00 | PROVIDERS: PCP Nurse Practitioner; Visit Provider Student in an Organized Health Care Education/Training Program | DX: S83.241D Other tear of medial meniscus, current injury, right knee, subsequent encounter (principal); X58.XXXD Exposure to other specified factors, subsequent encounter | CPT/HCPCS: 97110; 97140 ==

== ENCOUNTER 2023-11-17 10:52 | Outpatient (CLI) | payer MEDICARE, SELFPAY ==
--- NOTE | 2023-11-17 11:15 | USCV_ITS ---
Gerber Manuel Age: 63 Gender: M : 1960 Exam Date: 11/17/2023 11:04 Ordering Phys: Emeli Lam Technologist: KEEGAN Exam Location: [facility] [place] Indication: LE Pain HISTORY: Lower extremity pain. PROCEDURES: Venous duplex imaging was performed in only the right lower extremity. The following venous structures were evaluated: common femoral vein, profunda vein, proximal portion of the greater saphenous vein, superficial femoral vein, and the popliteal vein. In addition, the posterior tibial and peroneal trunk were evaluated. Serial compression, augmentation maneuvers, and spectral Doppler flow evaluation were performed. FINDINGS: Normal 2-D Doppler and augmentation and compressibility throughout the lower extremity venous structures. Additional imaging through the proximal calf veins also reveals no thrombus. Limited evaluation of the greater saphenous vein is patent with no thrombus. CONCLUSIONS No DVT right lower extremity. Dr. Natasha Ortiz DO (Electronically Signed) Final Date: 17 November 2023 14:29 S
== END 2023-11-17 10:53 | disposition home or self-care (01) ==
LOC: RAD 10:53
PROVIDERS: PCP Nurse Practitioner; Visit Provider Nurse Practitioner
DX: M79.661 Pain in right lower leg (principal)
CPT/HCPCS: 93971

== ENCOUNTER 2023-12-18 06:00 | Outpatient (RCR) | payer MEDICARE, SELFPAY | END 2024-01-16 23:59 | disposition home or self-care (01) | LOC: TPT 06:00 | PROVIDERS: PCP Nurse Practitioner; Visit Provider Student in an Organized Health Care Education/Training Program | DX: S83.241D Other tear of medial meniscus, current injury, right knee, subsequent encounter (principal); X58.XXXD Exposure to other specified factors, subsequent encounter | CPT/HCPCS: 97110 ==

== ENCOUNTER 2024-01-17 06:00 | Outpatient (RCR) | payer MEDICARE, SELFPAY | END 2024-02-16 23:59 | disposition home or self-care (01) | LOC: TPT 06:00 | PROVIDERS: PCP Nurse Practitioner; Visit Provider Student in an Organized Health Care Education/Training Program | DX: S83.241D Other tear of medial meniscus, current injury, right knee, subsequent encounter (principal); X58.XXXD Exposure to other specified factors, subsequent encounter | CPT/HCPCS: 97110; 97140 ==

== ENCOUNTER → 2024-01-23 13:03 | Outpatient (BNVA) | payer MEDICARE, SELFPAY | PROVIDERS: PCP Nurse Practitioner; Visit Provider Physician Assistant | DX: Z98.890 Other specified postprocedural states (principal) | CPT/HCPCS: 99213 ==

== ENCOUNTER → 2024-02-07 11:00 | Outpatient (BNVA) | payer MEDICARE, SELFPAY | PROVIDERS: PCP Nurse Practitioner; Visit Provider Nurse Practitioner Family | DX: E11.621 Type 2 diabetes mellitus with foot ulcer (principal); L97.519 Non-pressure chronic ulcer of other part of right foot with unspecified severity | CPT/HCPCS: 87070 ==

== ENCOUNTER 2024-02-17 06:00 | Outpatient (RCR) | payer MEDICARE, SELFPAY | END 2024-02-28 23:59 | disposition home or self-care (01) | LOC: TPT 06:00 | PROVIDERS: PCP Nurse Practitioner; Visit Provider Student in an Organized Health Care Education/Training Program | DX: S83.241D Other tear of medial meniscus, current injury, right knee, subsequent encounter (principal); X58.XXXD Exposure to other specified factors, subsequent encounter | CPT/HCPCS: 97110 ==

== ENCOUNTER → 2024-05-10 08:04 | Outpatient (BNVA) | payer MEDICARE, SELFPAY | PROVIDERS: PCP Nurse Practitioner; Visit Provider Physician Assistant | DX: Z98.890 Other specified postprocedural states (principal) | CPT/HCPCS: 99213 ==

== ENCOUNTER → 2024-07-02 09:35 | Outpatient (BNVA) | payer MEDICARE, SELFPAY | PROVIDERS: PCP Nurse Practitioner; Visit Provider Nurse Practitioner | DX: Z12.5 Encounter for screening for malignant neoplasm of prostate (principal); E11.9 Type 2 diabetes mellitus without complications; E11.65 Type 2 diabetes mellitus with hyperglycemia | CPT/HCPCS: 80053; 80061; 81000; 82043; 82607; 83036; G0103 ==

== ENCOUNTER → 2024-07-30 09:58 | Outpatient (BNVA) | payer MEDICARE, SELFPAY | PROVIDERS: PCP Nurse Practitioner; Referring Provider Nurse Practitioner Family; Visit Provider Nurse Practitioner Family | DX: I99.8 Other disorder of circulatory system (principal); D23.5 Other benign neoplasm of skin of trunk; L57.8 Other skin changes due to chronic exposure to nonionizing radiation; L81.4 Other melanin hyperpigmentation; L82.0 Inflamed seborrheic keratosis; L53.8 Other specified erythematous conditions; L57.0 Actinic keratosis; Z29.89 Encounter for other specified prophylactic measures | CPT/HCPCS: 17000; 17110; 99203 ==

== ENCOUNTER → 2024-10-11 08:16 | Outpatient (BNVA) | payer MEDICARE, SELFPAY | PROVIDERS: PCP Nurse Practitioner; Visit Provider Physician Assistant | DX: Z98.890 Other specified postprocedural states (principal); M23.41 Loose body in knee, right knee; M17.11 Unilateral primary osteoarthritis, right knee | CPT/HCPCS: 73560; 73565; 99213 ==

== ENCOUNTER 2024-10-19 06:30 | Outpatient (RCR) | payer MEDICARE, SELFPAY | END 2024-11-15 23:55 | disposition home or self-care (01) | LOC: TPT 06:30 | PROVIDERS: Visit Provider Podiatrist Foot & Ankle Surgery | DX: M72.2 Plantar fascial fibromatosis (principal) | CPT/HCPCS: 97140; 97162 ==

== ENCOUNTER → 2024-10-22 08:07 | Outpatient (BNVA) | payer MEDICARE, SELFPAY | PROVIDERS: PCP Nurse Practitioner; Visit Provider Physician Assistant | DX: M17.11 Unilateral primary osteoarthritis, right knee (principal) | CPT/HCPCS: 20610; 99213; J7318 ==

== ENCOUNTER → 2024-10-31 07:49 | Outpatient (BNVA) | payer MEDICARE, SELFPAY | PROVIDERS: PCP Nurse Practitioner; Visit Provider Podiatrist Foot & Ankle Surgery | DX: M79.672 Pain in left foot (principal); E11.69 Type 2 diabetes mellitus with other specified complication; M72.2 Plantar fascial fibromatosis | CPT/HCPCS: 73630; 99203 ==

== ENCOUNTER 2024-11-16 06:30 | Outpatient (RCR) | payer MEDICARE, SELFPAY | END 2024-12-16 23:59 | disposition home or self-care (01) | LOC: TPT 06:30 | PROVIDERS: Visit Provider Podiatrist Foot & Ankle Surgery | DX: M72.2 Plantar fascial fibromatosis (principal) | CPT/HCPCS: 97110; 97140 ==

== ENCOUNTER → 2024-11-25 13:18 | Outpatient (BNVA) | payer MEDICARE, SELFPAY | PROVIDERS: Visit Provider Nurse Practitioner Family | DX: L57.8 Other skin changes due to chronic exposure to nonionizing radiation (principal); L81.4 Other melanin hyperpigmentation; D23.5 Other benign neoplasm of skin of trunk; L82.0 Inflamed seborrheic keratosis; R20.8 Other disturbances of skin sensation; R58 Hemorrhage, not elsewhere classified; L53.8 Other specified erythematous conditions; L29.89 Other pruritus; Z78.9 Other specified health status; L57.0 Actinic keratosis | CPT/HCPCS: 17000; 17110; 99213 ==

== ENCOUNTER → 2024-11-28 07:54 | Outpatient (BNVA) | payer MEDICARE, SELFPAY | PROVIDERS: Visit Provider Podiatrist Foot & Ankle Surgery | DX: M72.2 Plantar fascial fibromatosis (principal); E11.9 Type 2 diabetes mellitus without complications | CPT/HCPCS: 20550; 20551; J1100; J3301; J9999 ==

== ENCOUNTER 2024-12-17 06:00 | Outpatient (RCR) | payer MEDICARE, SELFPAY | END 2025-01-15 23:59 | disposition home or self-care (01) | LOC: TPT 06:00 | PROVIDERS: PCP Nurse Practitioner; Visit Provider Podiatrist Foot & Ankle Surgery | DX: M72.2 Plantar fascial fibromatosis (principal) | CPT/HCPCS: 97110; 97140 ==

== ENCOUNTER → 2024-12-19 07:25 | Outpatient (BNVA) | payer MEDICARE, SELFPAY | PROVIDERS: PCP Nurse Practitioner; Visit Provider Podiatrist Foot & Ankle Surgery | DX: M72.2 Plantar fascial fibromatosis (principal); E11.69 Type 2 diabetes mellitus with other specified complication | CPT/HCPCS: 99213 ==

== ENCOUNTER 2025-01-16 05:25 | Outpatient (RCR) | payer MEDICARE, SELFPAY | END 2025-01-21 12:40 | disposition home or self-care (01) | LOC: TPT 05:25 | PROVIDERS: PCP Nurse Practitioner; Visit Provider Podiatrist Foot & Ankle Surgery | DX: M72.2 Plantar fascial fibromatosis (principal) | CPT/HCPCS: 97110; 97140 ==

== ENCOUNTER → 2025-01-22 10:55 | Outpatient (BNVA) | payer MEDICARE, SELFPAY | PROVIDERS: PCP Nurse Practitioner; Visit Provider Nurse Practitioner | DX: E11.65 Type 2 diabetes mellitus with hyperglycemia (principal); E55.9 Vitamin D deficiency, unspecified | CPT/HCPCS: 80053; 80061; 81000; 82043; 82306; 83036 ==

== ENCOUNTER → 2025-02-04 10:16 | Outpatient (BNVA) | payer MEDICARE, SELFPAY | PROVIDERS: PCP Nurse Practitioner; Visit Provider Nurse Practitioner Family | DX: I99.8 Other disorder of circulatory system (principal); L57.8 Other skin changes due to chronic exposure to nonionizing radiation; L81.4 Other melanin hyperpigmentation; D22.0 Melanocytic nevi of lip; L82.0 Inflamed seborrheic keratosis; L29.89 Other pruritus; Z78.9 Other specified health status; L53.8 Other specified erythematous conditions; L57.0 Actinic keratosis | CPT/HCPCS: 17000; 17110; 99213 ==

== ENCOUNTER → 2025-04-29 08:47 | Outpatient (BNVA) | payer MEDICARE, SELFPAY | PROVIDERS: PCP Nurse Practitioner; Visit Provider Physician Assistant | DX: M17.11 Unilateral primary osteoarthritis, right knee (principal); Z98.890 Other specified postprocedural states | CPT/HCPCS: 20610; 73560; 73565; 99213; J3301; J9999 ==

== ENCOUNTER → 2025-05-05 14:51 | Outpatient (BNVA) | payer MEDICARE, SELFPAY | PROVIDERS: PCP Nurse Practitioner; Visit Provider Nurse Practitioner Family | DX: R05.9 Cough, unspecified (principal) | CPT/HCPCS: 87426 ==

== ENCOUNTER → 2025-07-23 08:42 | Outpatient (BNVA) | payer MEDICARE, SELFPAY | PROVIDERS: PCP Nurse Practitioner; Visit Provider Nurse Practitioner | DX: E55.9 Vitamin D deficiency, unspecified (principal); E11.65 Type 2 diabetes mellitus with hyperglycemia; E78.2 Mixed hyperlipidemia; I10 Essential (primary) hypertension; Z12.5 Encounter for screening for malignant neoplasm of prostate | CPT/HCPCS: 80053; 80061; 81000; 82043; 82306; 83036; 84443; G0103 ==

== ENCOUNTER → 2025-07-28 11:18 | Outpatient (BNVA) | payer MEDICARE, SELFPAY | PROVIDERS: PCP Nurse Practitioner; Visit Provider Nurse Practitioner Family | DX: I99.8 Other disorder of circulatory system (principal); L57.8 Other skin changes due to chronic exposure to nonionizing radiation; L81.4 Other melanin hyperpigmentation; D22.0 Melanocytic nevi of lip; L57.0 Actinic keratosis | CPT/HCPCS: 17000; 99213 ==

== ENCOUNTER → 2025-08-01 09:12 | Outpatient (BNVA) | payer MEDICARE, SELFPAY | PROVIDERS: PCP Nurse Practitioner; Visit Provider Physician Assistant | DX: M17.11 Unilateral primary osteoarthritis, right knee (principal) | CPT/HCPCS: 20610; 99213; J3301; J9999 ==